=== PATIENT | male | born 1965 | race African-American/Black ===

== ENCOUNTER 2023-08-09 13:55 | Inpatient (IN) | payer MEDICAID ==
[~2023-08-09] VITALS: Ht 182.9 cm; Wt 81.6 kg
[2023-08-09 14:04] VITALS: BP_SYST 120; PULSE 114; RESP 19; TEMP 98.2; O2SAT 99
[2023-08-09 15:11] LABS: HEMATOCRIT 30.5 % (36-54); HEMOGLOBIN 9.3 g/dL (14.0-18.0); MEAN CORPUSCULAR HEMOGLOBIN 25 pg (27-31); MEAN CORPUSCULAR HGB CONC 31 % (32-36); MEAN CORPUSCULAR VOLUME 80 fL (79.0-98.0); PLATELET COUNT (AUTO) 297 K/uL (130-430); RED CELL DISTRIBUTION WIDTH 19.6 % (9.0-15.0); WHITE BLOOD COUNT (AUTO) 14.2 K/uL (4.8-10.8)
[2023-08-09 15:19] LABS: CALCIUM 7.6 mg/dL (8.4-11.0); CREATININE 0.9 mg/dL (0.55-1.30); POTASSIUM 4.3 mmol/L (3.5-5.1)
[2023-08-09 15:24] LABS: ALBUMIN 2.2 g/dL (3.4-4.8); TOTAL BILIRUBIN 0.4 mg/dL (0.0-1.0); TOTAL PROTEIN, SERUM 8.1 g/dL (6.4-8.3)
[2023-08-09 16:12] LABS: BAND % (MANUAL) 5 % (0-6); BASOPHILS % (MANUAL) 0 % (0-2); EOSINOPHILS % (MANUAL) 5 % (0-7); LYMPHOCYTES % (MANUAL) 4 % (20-46); MONOCYTES % (MANUAL) 0 % (0-11)
[2023-08-09 16:13] LABS: ANISOCYTOSIS 1+; OVALOCYTES FEW; PLATELET ESTIMATE ADEQUATE (ADEQUATE)
[2023-08-09] MEDS ORDERED: NACL 0.9% 1,000 ML IV ONE ×3 (17:30→21:15)
[2023-08-09 18:28] LABS: BILIRUBIN,URINE NEGATIVE (NEGATIVE); CLARITY/URINE CLOUDY (CLEAR); GLUCOSE,URINE NEGATIVE (NEGATIVE); KETONES,URINE NEGATIVE (NEGATIVE); LEUKOCYTE ESTERASE ,URINE 3+ (NEGATIVE); NITRITE, URINE NEGATIVE (NEGATIVE); PH,URINE 8.5 (5.0-8.0); PROTEIN URINE 1+ (NEGATIVE); UROBILINOGEN,URINE 0.2 (0.2-1.0)
[2023-08-09 18:32] LABS: BARBITURATE, URINE NEGATIVE (NEG <=200); BENZODIAZEPINE, URINE NEGATIVE (NEG <=150); BLOOD, URINE TRACE (NEGATIVE); CANNABINOID, URINE NEGATIVE (NEG <=50); COCAINE, URINE NEGATIVE (NEG <=150); COLOR,URINE YELLOW (YELLOW); METHAMPHETAMINES SCREEN,URINE NEGATIVE (NEG <=500); OPIATE, URINE NEGATIVE (NEG <=100); PHENCYCLIDINE SCREEN,URINE NEGATIVE (NEG <=25); UR TRICYCLIC ANTIDEPRESSANTS NEGATIVE (NEG <=300); URINE AMPHETAMINE NEGATIVE (NEG <=500); URINE METHADONE NEGATIVE (NEG <=200); URINE OXYCODONE SCREEN NEGATIVE (NEG <=100); URINE PROPOXYPHENE SCREEN NEGATIVE (NEG <=300)
[2023-08-09 18:46] LABS: BACTERIA,URINE MANY /HPF (None Seen); WBC,URINE 80-100 /HPF (0-3)
[2023-08-09 18:47] LABS: MUCUS,URINE None Seen /LPF (None Seen); URINE AMORPHOUS PHOSPHATES 3+ /HPF (None Seen)
[2023-08-09] MEDS ORDERED: cefTRIAXone 1 GM IVPB PREMIX 50 ML IV ONE (19:45)
[2023-08-09 20:40] LABS: SALICYLATE 2 mg/dL (3-30)
[2023-08-09 20:43] LABS: ACETAMINOPHEN < 1 ug/mL (1-30)
[2023-08-09] MEDS ORDERED: QUEtiapine FUMARATE 25 MG TABLET PO PRN (21:15)
[2023-08-09] MEDS ORDERED: TRAM50TA2 PO (22:10)
[2023-08-09] MEDS ORDERED: MOM PO (22:10)
[2023-08-09] MEDS ORDERED: BUSP5TAB3 PO (22:10)
[2023-08-09] MEDS ORDERED: FER300L PO (22:10)
[2023-08-09] MEDS ORDERED: LIP40 PO (22:10)
[2023-08-09] MEDS ORDERED: OXYB5TAB16 PO (22:10)
[2023-08-09] MEDS ORDERED: ASCO500T20 PO (22:10)
[2023-08-09] MEDS ORDERED: NEU300 PO (22:10)
[2023-08-09] MEDS ORDERED: BACL20TA PO (22:10)
[2023-08-09] MEDS ORDERED: HYDR-3919 PO (22:10)
[2023-08-09] MEDS ORDERED: PRO40 PO (22:10)
[2023-08-09] MEDS ORDERED: METF-380 PO (22:10)
[2023-08-09] MEDS ORDERED: NOREPINEPHRINE BITARTRATE 4 MG in D5W 246 ML IV PRN (22:30)
[2023-08-09 23:31] VITALS: BP_SYST 112; PULSE 102; RESP 18; TEMP 98.5
[2023-08-09] MEDS ORDERED: NOREPINEPHRINE 4 MG/4 ML VIAL IV ONE (23:31)
[2023-08-10 00:33] VITALS: BP_SYST 110; PULSE 102; RESP 18; TEMP 98.6; O2SAT 98
[2023-08-10 00:39] VITALS: O2SAT 98
[2023-08-10 00:46] VITALS: BP_SYST 112; PULSE 102
[2023-08-10 00:51] VITALS: BP_SYST 108; PULSE 106; RESP 18; TEMP 98.8; O2SAT 99
[2023-08-10] MEDS ORDERED: MAG-AL HYDROX/SIMETH 30 ML UDC PO ONE (05:30)
[2023-08-10 07:55] LABS: BASOPHILS % (AUTO) 0.4 % (0.0-2.0); EOSINOPHILS # (AUTO) 0.5 K/uL (0.0-0.4); EOSINOPHILS % (AUTO) 4.4 % (0.0-4.0); HEMOGLOBIN 8.1 g/dL (14.0-18.0); LYMPHOCYTES % (AUTO) 8.2 % (20.5-51.5); MEAN CORPUSCULAR HEMOGLOBIN 24 pg (27-31); MEAN CORPUSCULAR HGB CONC 30 % (32-36); MEAN CORPUSCULAR VOLUME 80 fL (79.0-98.0); MONOCYTES # (AUTO) 0.9 K/uL (0.0-1.0); MONOCYTES % (AUTO) 7.8 % (1.7-9.3); NEUTROPHILS # (AUTO) 9.3 K/uL (1.8-7.7); NEUTROPHILS % (AUTO) 79.2 % (40.0-70.0); PLATELET COUNT (AUTO) 248 K/uL (130-430); RED BLOOD CELL COUNT(AUTO) 3.36 MIL/uL (4.2-6.2); RED CELL DISTRIBUTION WIDTH 19.5 % (9.0-15.0); WHITE BLOOD COUNT (AUTO) 11.7 K/uL (4.8-10.8)
[2023-08-10 08:08] LABS: CALCIUM 7.1 mg/dL (8.4-11.0); CREATININE 0.81 mg/dL (0.55-1.30); POTASSIUM 3.5 mmol/L (3.5-5.1)
[2023-08-10] MEDS ORDERED: cefTRIAXone 1 GM in D5W 50 ML IV SCH (09:00)
[2023-08-10] MEDS ORDERED: cefTRIAXone 1 GM VIAL ONE (09:18)
[2023-08-10 10:03] VITALS: PULSE 83; O2SAT 98
[2023-08-10 17:30] VITALS: BP_SYST 142; PULSE 76; RESP 16; TEMP 99; O2SAT 99
[2023-08-10] MEDS ORDERED: BACLOFEN 10 MG TABLET PO SCH (18:30)
[2023-08-10] MEDS ORDERED: GABAPENTIN 300 MG CAPSULE PO SCH (21:00)
[2023-08-10] MEDS ORDERED: FERROUS SULFATE 300 MG/5 ML UDC PO SCH (21:00)
[2023-08-10] MEDS ORDERED: busPIRone HCL 5 MG TABLET PO SCH (21:00)
[2023-08-10] MEDS ORDERED: traMADol HCL HCL 50 MG TABLET (ULTRAM) PO SCH (21:00)
[2023-08-10] MEDS ORDERED: ATORVASTATIN 20 MG TABLET PO SCH (21:00)
[2023-08-11] MEDS ORDERED: PANTOPRAZOLE SODIUM 40 MG TAB PO ONE (01:45)
[2023-08-11] MEDS ORDERED: oxyBUTYnin chloride 5 MG TABLET PO SCH (09:00)
[2023-08-11] MEDS ORDERED: PANTOPRAZOLE SODIUM 40 MG TAB PO SCH (09:00)
[2023-08-11] MEDS ORDERED: MILK OF MAGNESIA 30 ML UDC PO SCH (09:00)
[2023-08-11] MEDS ORDERED: ASCORBIC ACID 500 MG TABLET PO SCH (09:00)
== END 2023-08-11 05:27 | disposition left against medical advice (07) | DRG 720 ==
LOC: EDSEX 13:55 → SED 13:55 → STU 21:06 → SMU 22:01 → STU 08-10 15:34
PROVIDERS: ADMIT Student in an Organized Health Care Education/Training Program; ATTEND Student in an Organized Health Care Education/Training Program
DX: A41.9 Sepsis, unspecified organism (principal); J96.10 Chronic respiratory failure, unspecified whether with hypoxia or hypercapnia; E44.0 Moderate protein-calorie malnutrition; F22 Delusional disorders; E11.622 Type 2 diabetes mellitus with other skin ulcer; I10 Essential (primary) hypertension; N39.0 Urinary tract infection, site not specified; W18.39XA Other fall on same level, initial encounter; Z53.29 Procedure and treatment not carried out because of patient's decision for other reasons; Z93.0 Tracheostomy status; Y93.89 Activity, other specified; Y92.89 Other specified places as the place of occurrence of the external cause; Y99.8 Other external cause status; Z79.899 Other long term (current) drug therapy; L98.429 Non-pressure chronic ulcer of back with unspecified severity; Z68.24 Body mass index [BMI] 24.0-24.9, adult
CPT/HCPCS: 36415; 70450-TC; 76376; 80048; 80053; 80307; 81000; 82962; 83605; 83880; 84484; 85007; 85025; 85027; 87040; 87086; 93005; 94760; 96361; 96365; 99285; G0378; G0480; G0481; J0696; J7060